=== PATIENT | female | born 2000 | race Caucasian/White ===

== ENCOUNTER 2020-06-01 11:45 | Emergency (ER) | payer OTHER ==
[~2020-06-01] VITALS: Ht 167.6 cm; Wt 68.3 kg
--- NOTE | 2020-06-01 12:10 | NUR ---
PT HERE FOR C/O LOWER ABD CRAMPING X1 WEEK WORSE SINCE LAST NIGHT. LMP 03/31/2020, DENIES VAGINAL BLEEDING, + FREQUENT URINATION. PLACED ON VITALS MONITORS, CALL LIGHT PLACED WITHIN REACH.
--- NOTE | 2020-06-01 12:29 | NUR ---
PT IN ULTRASOUND.
[2020-06-01 12:34] LABS: MICROSCOPIC NOT IND
[2020-06-01 12:35] LABS: BASOPHILS % (AUTO) 0 % (0-1); EOSINOPHILS % (AUTO) 1 % (1-7); LYMPHOCYTES % (AUTO) 21 % (22-44); MEAN CORPUSCULAR HEMOGLOBIN 30.6 pg (27.0-34.8); MEAN CORPUSCULAR HGB CONC 34.6 g/dL (32.4-35.8); MEAN PLATELET VOLUME 9.9 fL (7.4-10.4); MONOCYTES % (AUTO) 7 % (2-9); NEUTROPHILS % (AUTO) 71 % (42-75); PLATELET COUNT 253 x10^3/uL (130-400); RED BLOOD COUNT 4.65 x10^6/uL (3.82-5.3); RED CELL DISTRIBUTION WIDTH 12.8 % (9.6-15.2)
[2020-06-01 12:38] LABS: MD NO
[2020-06-01 12:45] LABS: ALBUMIN 4.1 g/dL (3.4-5.0); ANION GAP 9 mmol/L (5-15); CALCIUM 9.4 mg/dL (8.5-10.1); CHLORIDE 109 mmol/L (98-107)
[2020-06-01 13:03] LABS: CREATININE 0.76 mg/dL (0.55-1.02)
[2020-06-01 13:36] VITALS: BP 100/46
== END 2020-06-01 13:39 | disposition home or self-care (01) ==
LOC: ED 12:22
DX: O20.0 Threatened abortion (principal); R10.2 Pelvic and perineal pain; R11.0 Nausea; Z3A.08 8 weeks gestation of pregnancy
CPT/HCPCS: 36415; 76801; 80048; 81003; 82040; 84702; 85025; 99284